=== PATIENT | male | born 1960 | race Caucasian/White ===

== ENCOUNTER 2019-05-04 12:16 | Outpatient (CLI) | payer MEDICARE, MEDICAID, SELFPAY ==
[2019-05-04 14:28] LABS: Alanine Aminotransferase 29 U/L (4-50); Albumin Level 4.4 g/dL (3.5-5.1); Alkaline Phosphatase 96 U/L (38-126); Aspartate Amino Transferase 27 U/L (17-59); Bilirubin,Total 0.5 mg/dL (0.2-1.3); Blood Urea Nitrogen 11 mg/dL (9-20); Calcium 9.7 mg/dL (8.4-10.2); Carbon Dioxide 25 mmol/L (22-30); Chloride 92 mmol/L (98-107); Estimated Glomerular Filt Rate > 60; Glucose 214 mg/dL (75-110); Potassium 4.4 mmol/L (3.4-5.0); Sodium 132 mmol/L (137-145)
== END 2019-05-04 12:17 | disposition home or self-care (01) ==
LOC: ANHWCLAB 12:30
PROVIDERS: PCP Family Medicine
DX: E11.65 Type 2 diabetes mellitus with hyperglycemia (principal)
CPT/HCPCS: 36415; 80053; 82043

== ENCOUNTER 2019-06-07 10:47 | Outpatient (CLI) | payer MEDICARE, MEDICAID, SELFPAY ==
[2019-06-07 13:40] LABS: Cholesterol 159 mg/dL (0-200); HDL Direct 45 mg/dL; Triglycerides 180 mg/dL (<150)
[2019-06-07 13:51] LABS: LDL Cholesterol Direct 89 mg/dL
[2019-06-07 14:09] LABS: Creatinine Urine 28.5 mg/dL
[2019-06-07 14:14] LABS: MALB Creatinine Ratio 154.7 mg/g (0-30); Microalbumin Urine Random 44.1 mg/L (0-16.7)
== END 2019-06-07 10:48 | disposition home or self-care (01) ==
LOC: ANHWCLAB 10:55
PROVIDERS: PCP Family Medicine
DX: E11.65 Type 2 diabetes mellitus with hyperglycemia (principal)
CPT/HCPCS: 36415; 80061; 82043

== ENCOUNTER 2019-11-16 10:58 | Outpatient (CLI) | payer MEDICARE, MEDICAID, SELFPAY ==
[2019-11-16 12:12] LABS: Basophils Absolute Auto 0.1 K/mm3 (0.0-0.1); Basophils Percent Auto 0.7 % (0.2-1.2); Eosinophils Absolute Auto 0.2 K/mm3 (0-0.3); Eosinophils Percent Auto 1.4 % (0-4.4); Hematocrit 53.6 % (42.0-52.0); Hemoglobin 18.5 g/dL (14.0-18.0); Immature Granulocyte Absolute 0.05 K/mm3 (0.00-0.031); Immature Granulocyte Percent A 0.5 % (0-0.5); Lymphocytes Absolute Auto 3.26 K/mm3 (0.9-3.2); Lymphocytes Percent Auto 30.5 % (18.3-44.2); Mean Corpuscular HGB Conc 34.5 g/dl (32-36); Mean Corpuscular Volume 89.9 fl (80-100); Mean Platelet Volume 9.7 fl (7.4-10.4); Monocytes Percent Auto 9.5 % (2.6-8.5); Neutrophils Absolute Auto 6.1 K/mm3 (1.3-6.7); Neutrophils Percent Auto 57.4 % (45.5-73.1); Platelet Count Result 269 k/mm3 (150-375); Red Blood Count 5.96 M/mm3 (4.6-6.20); Red Cell Distribution Width 12.3 % (11.5-14.5); White Blood Count 10.7 K/mm3 (4.5-10.0)
[2019-11-16 12:29] LABS: Alanine Aminotransferase 33 U/L (4-50); Albumin Level 4.6 g/dL (3.5-5.1); Alkaline Phosphatase 67 U/L (38-126); Anion Gap 10 mmol/L (8-16); Aspartate Amino Transferase 29 U/L (17-59); Bilirubin,Total 0.6 mg/dL (0.2-1.3); Blood Urea Nitrogen 11 mg/dL (9-20); Calcium 9.6 mg/dL (8.4-10.2); Carbon Dioxide 27 mmol/L (22-30); Chloride 98 mmol/L (98-107); Cholesterol 147 mg/dL (0-200); Estimated Glomerular Filt Rate > 60; Glucose 115 mg/dL (75-110); HDL Direct 44 mg/dL; Potassium 4.7 mmol/L (3.4-5.0); Sodium 135 mmol/L (137-145); Triglycerides 176 mg/dL (<150)
[2019-11-16 12:40] LABS: LDL Cholesterol Direct 76 mg/dL
[2019-11-16 13:00] LABS: Prostate Specific Antigen 0.1 ng/mL (< OR = 4.0); Thyroid Stimulating Hormone 0.927 uIU/mL (0.465-4.680)
[2019-11-16 13:26] LABS: Free T4 Free Thyroxine 0.97 ng/mL (0.78-2.19); Vitamin D 25 Hydroxy 46.8 ng/mL
[2019-11-16 13:38] LABS: Creatinine Urine 111.8 mg/dL
[2019-11-16 13:43] LABS: Microalbumin Urine Random 83.9 mg/L (0-16.7)
[2019-11-18 13:42] LABS: Triiodothyronine T3 Free 3.1 pg/mL (2.3-4.2)
== END 2019-11-16 10:59 | disposition home or self-care (01) ==
LOC: ANHLAB 11:03
PROVIDERS: PCP Family Medicine; Visit Provider Nurse Practitioner
DX: E11.42 Type 2 diabetes mellitus with diabetic polyneuropathy (principal); E66.09 Other obesity due to excess calories; I10 Essential (primary) hypertension; E78.2 Mixed hyperlipidemia; E55.9 Vitamin D deficiency, unspecified; Z12.5 Encounter for screening for malignant neoplasm of prostate
CPT/HCPCS: 36415; 80053; 80061; 82043; 82306; 84153; 84439; 84443; 84481; 85025; G0103

== ENCOUNTER 2020-04-16 00:24 | Outpatient (CLI) | payer MEDICARE, MEDICAID, SELFPAY ==
[2020-04-16 18:26] LABS: SARS-CoV-2 RNA PCR Negative
== END 2020-04-16 00:25 | disposition home or self-care (01) ==
LOC: ANHCOVIDDT 00:24
PROVIDERS: Family Provider Family Medicine; PCP Family Medicine; Visit Provider Internal Medicine Gastroenterology
DX: Z01.812 Encounter for preprocedural laboratory examination (principal); Z20.822 Contact with and (suspected) exposure to COVID-19
CPT/HCPCS: C9803; U0003; U0005

== ENCOUNTER 2020-04-19 00:43 | Day surgery (SDC) | payer MEDICARE, MEDICAID, SELFPAY ==
[2020-04-09 15:55] VITALS: BMI 32.8
--- NOTE | 2020-04-19 12:15 | P.PNAN_ITS ---
Anes - Initial Pre Proc Eval Procedure: Operation Date: 04/19/20 12:00 Proposed Procedures p Colonoscopy - Rene Zavaleta DO Date/Time: 04/19/20 12:15 Surgeon: Rene Zavaleta DO Pre Op Diagnosis: Diarrhea Patient Data Age: 59 Gender: M Height: 6 ft Weight: 110 kg Allergies Allergy/AdvReac Type Severity Reaction Status Date / Time No Known Allergies Allergy Unknown Verified 04/09/20 16:01 Home Medications Medication Instructions Recorded Confirmed Type amitriptyline 50 mg PO DAILY 04/09/20 04/09/20 History hydrochlorothiazide 25 mg PO DAILY 04/09/20 04/09/20 History insulin glargine [Lantus Solostar 15 unit SUBCUT HS 04/09/20 04/09/20 History U-100 Insulin] lisinopril 40 mg PO DAILY 04/09/20 04/09/20 History metformin 1,000 mg PO BID 04/09/20 04/09/20 History metoprolol succinate 100 mg PO DAILY 04/09/20 04/09/20 History primidone 50 mg PO DAILY 04/09/20 04/09/20 History simvastatin 20 mg PO DAILY 04/09/20 04/09/20 History Patient hx anesthesia problems: none Family hx anesthesia problems: none [facility] Past Medical History Medical History (Updated 04/19/20 @ 12:15 by Brian Medellin MD) Diabetes Hyperlipidemia Hypertension Social History Social History Smoking packs per day: 1 Smoking cigarettes per day: 20.0 Years smoked: 40 Smoking pack-years: 40.00 Smoking status: Current every day smoker Tobacco type: cigarettes Alcohol intake: current Substance use type: does not use Living arrangements: alone Spiritual care concerns: No Anes - Eval Final PreProcedure Day of Procedure 04/19/20 12:15 Patient weight: obese Heart: regular rate and rhythm Lungs: clear to auscultation Airway: Mallampati scale class II Neurological: alert and oriented Last oral intake: >/= 8 hours ASA classification: III Emergent: no Anesthetic plan: proceed Anesthesia type and monitoring: general GIVS and standard monitoring Informed Consent: The patient's anesthetic plan and its attendant risks and benefits were discussed with the patient/family/POA. Questions were solicited and answers provided to the satisfaction of the patient/family/POA.
[2020-04-19 12:23] VITALS: BP 140/81; PULSE 73; RESP 18; TEMP 36.4; O2SAT 97; BMI 34.6
[2020-04-19] MEDS: LACTATED RINGERS 1,000 ML 150 ML IV CONT (12:34)
[2020-04-19 12:36] LABS: Glucose Point of Care 182 (65-105)
--- NOTE | 2020-04-19 13:04 | WPDGICN ---
GI Consult Note Consult date/time: 04/19/20 13:04 HPI: Reason for visit is colonoscopy. This very pleasant gentleman's seen at the request the primary physician. The patient was examined. Impression: This very pleasant gentleman is here for screening colonoscopy. He did have an episode of diarrhea. This was felt to be due to metformin. The diarrhea ceased after discontinuation of metformin. Obesity. Tobacco abuse. Diabetes mellitus. Now the. HTN. HLD. Recommendation: Colonoscopy. History: Very pleasant gentleman is here for colonoscopy. Was having diarrhea. Since decreasing his metformin doses diarrhea abated. Hematochezia, melena acholic stools night. Abdominal pain, nausea, vomiting and hematemesis tonight. Fever, chills and night sweats and tonight. The patient is here for colonoscopy. Physical examination: General: very pleasant patient in no acute distress. HEENT: Head was normocephalic sclerae is clear mouth without masses neck was supple. Heart: Rate rhythm regular without S3 or S4. Lungs: CTA. Abdomen: Soft with no guarding or rigidity. Bowel sounds were active. Neurologic: Cranial nerves 2 through 12 intact. No focal defects. No clonus. Musculoskeletal system: Revealed no joint tenderness or swelling no muscle atrophy. Extremities: Reveal no significant edema. Skin: Warm and dry with normal turgor. Mental status: intact. Patient is alert and oriented. Review of Systems Review of Systems: All systems reviewed & are unremarkable except as noted in HPI and below PMFSH Past Medical History Medical History (Updated 04/19/20 @ 12:15 by Brian Medellin MD) Diabetes Hyperlipidemia Hypertension Social History Social History Smoking packs per day: 1 Smoking cigarettes per day: 20.0 Years smoked: 40 Smoking pack-years: 40.00 Smoking status: Current every day smoker Tobacco type: cigarettes Alcohol intake: current Substance use type: does not use Living arrangements: alone Spiritual care concerns: No Meds Home Medications and Allergies Home Medications Medication Instructions Recorded Confirmed Type amitriptyline 50 mg PO DAILY 04/09/20 04/09/20 History hydrochlorothiazide 25 mg PO DAILY 04/09/20 04/09/20 History insulin glargine [Lantus Solostar 15 unit SUBCUT HS 04/09/20 04/09/20 History U-100 Insulin] lisinopril 40 mg PO DAILY 04/09/20 04/09/20 History metformin 1,000 mg PO BID 04/09/20 04/09/20 History metoprolol succinate 100 mg PO DAILY 04/09/20 04/09/20 History primidone 50 mg PO DAILY 04/09/20 04/09/20 History simvastatin 20 mg PO DAILY 04/09/20 04/09/20 History Allergies Allergy/AdvReac Type Severity Reaction Status Date / Time No Known Allergies Allergy Unknown Verified 04/19/20 12:18 Vital Signs Vital Signs - 24 hr 04/19/20 12:23 Temperature 36.4 C Pulse Rate 73 Respiratory Rate 18 Blood Pressure 140/81 Pulse Oximetry 97
[2020-04-19 14:11] VITALS: BP 103/64; PULSE 73; RESP 17; O2SAT 94
[2020-04-19 14:21] VITALS: BP 125/75; PULSE 68; RESP 19; O2SAT 100
[2020-04-19 14:26] LABS: Glucose Point of Care 147 (65-105)
[2020-04-19 14:31] VITALS: BP 125/72; PULSE 70; RESP 18; O2SAT 100
== END 2020-04-19 14:44 | disposition home or self-care (01) ==
PROVIDERS: Family Provider Family Medicine; PCP Family Medicine; Visit Provider Internal Medicine Gastroenterology
PROC: 0DJD8ZZ Inspection of Lower Intestinal Tract, Via Natural or Artificial Opening Endoscopic (ICD-10-PCS; CPT 45378; principal; 2020-04-19 12:00)
DX: Z12.11 Encounter for screening for malignant neoplasm of colon (principal); K63.5 Polyp of colon; R19.7 Diarrhea, unspecified; I10 Essential (primary) hypertension; E78.5 Hyperlipidemia, unspecified; E11.9 Type 2 diabetes mellitus without complications; E66.9 Obesity, unspecified; Z68.34 Body mass index [BMI] 34.0-34.9, adult; F17.210 Nicotine dependence, cigarettes, uncomplicated; Z79.4 Long term (current) use of insulin; Z79.84 Long term (current) use of oral hypoglycemic drugs
CPT/HCPCS: 45380; 88305; J2704; J7120

== ENCOUNTER 2020-10-09 10:27 | Outpatient (CLI) | payer MEDICARE, MEDICAID, SELFPAY ==
[2020-10-09 11:08] LABS: Alanine Aminotransferase 21 U/L (4-50); Albumin Level 4.7 g/dL (3.5-5.1); Alkaline Phosphatase 73 U/L (38-126); Anion Gap 11 mmol/L (8-16); Aspartate Amino Transferase 23 U/L (17-59); Bilirubin,Total 0.7 mg/dL (0.2-1.3); Blood Urea Nitrogen 12 mg/dL (9-20); Calcium 10.3 mg/dL (8.4-10.2); Carbon Dioxide 29 mmol/L (22-30); Chloride 96 mmol/L (98-107); Estimated Glomerular Filt Rate > 60; Glucose 147 mg/dL (65-110); Potassium 4.4 mmol/L (3.4-5.0); Sodium 136 mmol/L (137-145)
[2020-10-09 11:10] LABS: Hemoglobin A1C 7.2 % (<5.7)
== END 2020-10-09 10:28 | disposition home or self-care (01) ==
LOC: ANHLAB 10:37
PROVIDERS: PCP Family Medicine
DX: E11.65 Type 2 diabetes mellitus with hyperglycemia (principal)
CPT/HCPCS: 36415; 80053; 83036

== ENCOUNTER 2021-01-17 11:37 | Outpatient (CLI) | payer OTHER, SELFPAY ==
[2021-01-17 13:55] LABS: Hemoglobin A1C 8.5 % (<5.7)
[2021-01-17 14:00] LABS: Alanine Aminotransferase 25 U/L (4-50); Albumin Level 4.7 g/dL (3.5-5.1); Alkaline Phosphatase 87 U/L (38-126); Anion Gap 12 mmol/L (8-16); Aspartate Amino Transferase 24 U/L (17-59); Bilirubin,Total 0.5 mg/dL (0.2-1.3); Blood Urea Nitrogen 27 mg/dL (9-20); Calcium 10.3 mg/dL (8.4-10.2); Carbon Dioxide 24 mmol/L (22-30); Chloride 94 mmol/L (98-107); Estimated Glomerular Filt Rate > 60; Glucose 172 mg/dL (65-110); Potassium 4.4 mmol/L (3.4-5.0); Sodium 130 mmol/L (137-145)
[2021-01-17 14:14] LABS: Creatinine Urine 51.5 mg/dL
[2021-01-17 14:19] LABS: MALB Creatinine Ratio 13.4 mg/g (0-30); Microalbumin Urine Random 6.9 mg/L (0-16.7)
== END 2021-01-17 11:38 | disposition home or self-care (01) ==
PROVIDERS: PCP Family Medicine
DX: E11.65 Type 2 diabetes mellitus with hyperglycemia (principal)
CPT/HCPCS: 36415; 80053; 82043; 83036

== ENCOUNTER 2021-07-25 11:40 | Emergency (ER) | payer OTHER, SELFPAY ==
[2021-07-25 11:56] VITALS: BP 128/80; PULSE 65; RESP 18; TEMP 36.4; O2SAT 98
--- NOTE | 2021-07-25 12:19 | ED.EXTPRO ---
HPI - Extremity Problem General Chief complaint: Extremity Problem,Nontraumatic Stated complaint: toe infection Time Seen by Provider: 07/25/21 12:00 History of Present Illness HPI Narrative: Patient is a 60-year-old male who presents ER with pain at the plantar aspect of the fifth MTP on the right side. Patient reports he has been having a weird feeling for the last 2 months. Over the last 2 to 3 days its become more sore. No redness. He is unable to see the bottom of his foot so he is unsure if he has any wounds or blisters or warts. No fevers or chills or sweats. No unilateral leg swelling. He is without chest pain or shortness of breath. Denies any trauma to the area. Reports his primary care physician could not get him in for 2 more days so he came to the ER for further evaluation Related Data Home Medications Medication Instructions Recorded Confirmed amitriptyline 50 mg PO DAILY 04/09/20 04/09/20 hydrochlorothiazide 25 mg PO DAILY 04/09/20 04/09/20 insulin glargine [Lantus Solostar 15 unit SUBCUT HS 04/09/20 04/09/20 U-100 Insulin] lisinopril 40 mg PO DAILY 04/09/20 04/09/20 metformin 1,000 mg PO BID 04/09/20 04/09/20 metoprolol succinate 100 mg PO DAILY 04/09/20 04/09/20 primidone 50 mg PO DAILY 04/09/20 04/09/20 simvastatin 20 mg PO DAILY 04/09/20 04/09/20 Allergies Allergy/AdvReac Type Severity Reaction Status Date / Time No Known Allergies Allergy Unknown Verified 04/19/20 12:18 Review of Systems Review of Systems: All systems reviewed & are unremarkable except as noted in HPI and below Constitutional: Constitutional: Denies chills, Denies fever(s) and Denies weakness Cardiovascular: Cardiovascular: Denies chest pain and Denies radiating jaw, neck or arm pain Musculoskeletal: Musculoskeletal: Reports arthralgias, Denies joint swelling and Denies muscle cramps Integumentary/Breasts: Skin/Breast: Denies pruritus, Denies erythema and Denies skin ulcer Neurologic: Denies focal weakness and Denies numbness [facility] Past Medical History Medical History (Updated 07/25/21 @ 12:27 by Elías Hernandez MD) Diabetes Hyperlipidemia Hypertension Social History Social History Smoking packs per day: 1 Smoking cigarettes per day: 20.0 Years smoked: 40 Smoking pack-years: 40.00 Smoking status: Current every day smoker Tobacco type: cigarettes Alcohol intake: current Substance use type: does not use Spiritual care concerns: No Exam Narrative: GENERAL: Well-appearing, well-nourished, and in no acute distress. HEAD: Normocephalic, atraumatic. HEART: Regular rate and rhythm. Normal peripheral pulses. EXTREMITIES: Normal range of motion. No edema. Mild tenderness plantar aspect of the fifth MTP on the right side. No swelling or redness. Normal dorsalis pedis pulses. No ulcerations to the plantar aspect of the foot, no evidence of wart or other injury. There is some mild firmness with palpation that could represent fibroma. SKIN: Warm, dry, no rash. NEURO: Alert and oriented x3. PSYCH: Normal mood and affect. Course Course Emergency Course: Patient declines x-ray of the right foot to rule out fracture. Patient may be having some discomfort from arthritis to the joint again this is unable to be diagnosed without x-ray. No appearance of gout. No diabetic foot wound. Discharged with hard soled shoe as most of his pain is increased by rolling his foot to the lateral aspect and also with roll stepping. Vital Signs Vital signs: Vital Signs Temperature 97.6 F 07/25/21 11:56 Pulse Rate 65 07/25/21 11:56 Respiratory Rate 18 07/25/21 11:56 Blood Pressure 128/80 07/25/21 11:56 Pulse Oximetry 98 07/25/21 11:56 Temperature 97.6 F 07/25/21 11:56 Pulse Rate 65 07/25/21 11:56 Respiratory Rate 18 07/25/21 11:56 Blood Pressure 128/80 07/25/21 11:56 Pulse Oximetry 98 07/25/21 11:56 Discharge Plan Discharge Clinical Impression: Metatarsalgia of ri
== END 2021-07-25 12:47 | disposition home or self-care (01) ==
PROVIDERS: Emergency Provider Emergency Medicine; PCP Family Medicine
DX: M77.41 Metatarsalgia, right foot (principal); E11.9 Type 2 diabetes mellitus without complications; E78.5 Hyperlipidemia, unspecified; I10 Essential (primary) hypertension; Z79.84 Long term (current) use of oral hypoglycemic drugs; Z79.4 Long term (current) use of insulin; F17.210 Nicotine dependence, cigarettes, uncomplicated
CPT/HCPCS: 99283

== ENCOUNTER 2021-07-29 12:27 | Outpatient (CLI) | payer OTHER, SELFPAY ==
--- NOTE | ~2021-07-29 | XR_ITS ---
XR foot RT min 3V DATE: 07/29/2021 12:49 INDICATION: Pain at the base of the fifth toe for 2 weeks. No known injury. TECHNIQUE: 4 views COMPARISON: None FINDINGS: There is mild osteoarthritis the first metatarsophalangeal joint. There is hallux valgus. No fracture, dislocation, periosteal reaction or bone destruction is evident. Minimal plantar calcaneal enthesopathy. IMPRESSION: No fracture or dislocation Reviewed, dictated and finalized at location B. IMPRESSION: No fracture or dislocation
== END 2021-07-29 12:28 | disposition home or self-care (01) ==
PROVIDERS: PCP Family Medicine; Visit Provider Family Medicine
DX: M79.671 Pain in right foot (principal)
CPT/HCPCS: 73630

== ENCOUNTER 2022-01-14 09:28 | Outpatient (CLI) | payer OTHER, SELFPAY ==
[2022-01-14 10:20] LABS: Alanine Aminotransferase 23 U/L (6-50); Albumin Level 4.3 g/dL (3.5-5.1); Alkaline Phosphatase 74 U/L (38-126); Anion Gap 11 mmol/L (8-16); Aspartate Amino Transferase 20 U/L (17-59); Bilirubin,Total 0.8 mg/dL (0.2-1.3); Blood Urea Nitrogen 26 mg/dL (9-20); Calcium 8.8 mg/dL (8.4-10.2); Carbon Dioxide 25 mmol/L (22-30); Chloride 98 mmol/L (98-107); Estimated Glomerular Filt Rate > 60; Glucose 177 mg/dL (65-110); Sodium 134 mmol/L (137-145)
[2022-01-14 10:25] LABS: Hemoglobin A1C 8.5 % (<5.7)
[2022-01-14 10:50] LABS: Creatinine Urine 65.6 mg/dL
[2022-01-14 10:55] LABS: MALB Creatinine Ratio 52.3 mg/g (0-30); Microalbumin Urine Random 34.3 mg/L (0-16.7)
== END 2022-01-14 09:29 | disposition home or self-care (01) ==
PROVIDERS: PCP Family Medicine
DX: E11.65 Type 2 diabetes mellitus with hyperglycemia (principal)
CPT/HCPCS: 36415; 80053; 82043; 83036

== ENCOUNTER 2022-02-05 11:02 | Emergency (ER) | payer OTHER, SELFPAY ==
--- NOTE | ~2022-02-05 | XR_ITS ---
EXAMINATION: XR lumbar spine 2-3V DATE: 02/05/2022 12:05 INDICATION: Low back pain post fall 2 weeks prior TECHNIQUE: Anteroposterior and lateral views of the lumbar spine, and cone-down lateral view of the l umbosacral junction were obtained. COMPARISON: None. FINDINGS: 13 degree levoscoliosis between L3 and L5 with mild compensatory upper thoracic dextrocurvature. Sagi ttal alignment is normal. Mild likely physiologic anterior wedging at T12 with Schmorl's node along t he inferior endplate. Moderate right-sided predominant disc height loss at L3-L4 and L4-L5. Mild to m oderate disc height loss at L5-S1. Mild disc height loss at T10-T11, T11-T12, and L2-L3. Mild left an d mild to moderate right hip osteoarthritis. There is also mild to moderate bilateral sacroiliac oste oarthritis. Moderate facet osteoarthritis in the mid to lower lumbar spine. IMPRESSION: 1. Mild levoscoliosis with moderate spondylosis in the mid to lower lumbar spine and mild spondylosis in the more cephalad lumbar and visualized lower thoracic spine. Reviewed, dictated and finalized at location B. X [employer] IMPRESSION: 1. Mild levoscoliosis with moderate spondylosis in the mid to lower lumbar spin e and mild spondylosis in the more cephalad lumbar and visualized lower thoraci c spine.
[2022-02-05 11:07] VITALS: BP 145/80; PULSE 99; RESP 14; TEMP 37.4; O2SAT 98
--- NOTE | 2022-02-05 13:30 | ED.BACK ---
HPI - Back Pain/Injury General Chief Complaint: Back Pain/Injury Stated Complaint: fall, back pain Time Seen by Provider: 02/05/22 13:12 History of Present Illness HPI Narrative: Pt briefly lost balance and caught himself about three weeks ago and noticed pain in his low back. Pt says he has noticed intermittent pain in his low back since which has worsened and today it is much worse and feels like it is locking up. Pt deneis problems with bladder or bowels and has good strength and sensation in legs. Pt denies fever. Related Data Home Medications Medication Instructions Recorded Confirmed amitriptyline 50 mg tablet 50 mg PO DAILY 04/09/20 04/09/20 hydrochlorothiazide 25 mg tablet 25 mg PO DAILY 04/09/20 04/09/20 insulin glargine 100 unit/mL (3 15 unit subcut HS 04/09/20 04/09/20 mL) subcutaneous pen (Lantus Solostar U-100 Insulin) lisinopril 40 mg tablet 40 mg PO DAILY 04/09/20 04/09/20 metformin 500 mg tablet,extended 1,000 mg PO BID 04/09/20 04/09/20 release 24 hr metoprolol succinate 50 mg 100 mg PO DAILY 04/09/20 04/09/20 tablet,extended release 24 hr primidone 50 mg tablet 50 mg PO DAILY 04/09/20 04/09/20 simvastatin 20 mg tablet 20 mg PO DAILY 04/09/20 04/09/20 Allergies Allergy/AdvReac Type Severity Reaction Status Date / Time No Known Allergies Allergy Unknown Verified 02/05/22 11:22 Review of Systems Review of Systems: All systems reviewed & are unremarkable except as noted in HPI and below PMFSH Past Medical History Medical History (Updated 02/05/22 @ 13:38 by Gary Byrd III, DO) Diabetes Hyperlipidemia Hypertension Social History Social History Smoking packs per day: 1 Smoking cigarettes per day: 20.0 Years smoked: 40 Smoking pack-years: 40.00 Smoking status: Current every day smoker Tobacco type: cigarettes Alcohol intake: current Substance use type: does not use Spiritual care concerns: No Exam Const: General: healthy appearing Nutritional Appearance: well nourished Orientation/consciousness: patient oriented x3 Limitations: no limitations Neck: Neck: normal visual inspection and no lymphadenopathy Resp: Effort & Inspection: normal respiratory effort Auscultation: clear to auscultation bilaterally Cardio: Rate: regular rate Rhythm: regular rhythm GI: Auscultation: normal bowel sounds Back/Spine/Pelvis: Other: tender paraspinous muscles low back with spasm especially on left side Skin: General skin exam: normal color Rashes: no rashes Neuro: General: patient oriented x3, moves all extremities and no focal motor deficits Speech: normal speech Other: 5/5 strength in LE b/l Extrem: General: normal to inspection Psych: Mental Status: mental status grossly normal Affect: normal affect Attitude: cooperative Course Vital Signs Vital signs: Vital Signs Temperature 99.3 F 02/05/22 11:07 Pulse Rate 99 02/05/22 11:07 Respiratory Rate 14 02/05/22 11:07 Blood Pressure 145/80 H 02/05/22 11:07 Pulse Oximetry 98 02/05/22 11:07 Oxygen Delivery Room Air 02/05/22 11:07 Temperature 99.3 F 02/05/22 11:07 Pulse Rate 99 02/05/22 11:07 Respiratory Rate 14 02/05/22 11:07 Blood Pressure 145/80 H 02/05/22 11:07 Pulse Oximetry 98 02/05/22 11:07 Oxygen Delivery Room Air 02/05/22 11:07 Discharge Plan Discharge Clinical Impression: Strain of lumbar region Patient Disposition: Home, Self-Care Condition: Stable Instructions: Antibiotic Form, Acute Low Back Pain (ED) Prescriptions: New naproxen [Naprosyn] 500 mg tablet 500 mg PO BID Qty: 20 0RF cyclobenzaprine 10 mg tablet 10 mg PO TID Qty: 14 0RF hydrocodone-acetaminophen 5-325 mg tablet 1 tablet PO Q6H PRN (Reason: pain) Qty: 14 0RF No Action primidone 50 mg tablet 50 mg PO DAILY metoprolol succinate 50 mg tablet extended release 24 hr 100 mg PO DAILY amitriptyline 50 mg tablet 50 mg PO VINCENT
== END 2022-02-05 13:56 | disposition home or self-care (01) ==
PROVIDERS: Emergency Provider Emergency Medicine; PCP Family Medicine
DX: S39.012A Strain of muscle, fascia and tendon of lower back, initial encounter (principal); F17.210 Nicotine dependence, cigarettes, uncomplicated; W18.40XA Slipping, tripping and stumbling without falling, unspecified, initial encounter
CPT/HCPCS: 72100; 99283

== ENCOUNTER 2024-09-19 10:50 | Outpatient (CLI) | payer MEDICARE, SELFPAY ==
--- NOTE | ~2024-09-19 | XR_ITS ---
Left Knee Technique: AP, lateral, and sunrise views were obtained. Clinical History: Pain Findings: No fracture or dislocation is seen. There is medial compartment narrowing. There is moderat e tricompartmental osteophyte formation. Minimal joint effusion is seen. 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 Reviewed, dictated and finalized at [facility]. 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
--- OUTSIDE RECORDS SUMMARY | 2024-09-19 11:32 | XMS_ITS | Clinical Summary ---
Author Organization [facility] [employer] Address [address] [place] [address] Care Team Providers Care Heat Treatment Technician Name Role Phone Sai Colbert MD Primary Care Provider [phone] Source Comments [facility] [employer]non-owned Affiliates and Associated Physician Practices is amultiple site organization consisting of ambulatory clinics and hospital sitesin [place], [place], [place] and [place]. This disclosure is being madepursuant to the Care Everywhere program and may not contain all information available regarding this patient. Last updated 17.[facility] [employer] Allergies No known active allergies Medications * Be aware that medications may not be up to date on this document. Alwaysverify current medications with the patient. amitriptyline (ELAVIL) 50 MG tablet Take 50 mg by mouth Active hydrochlorothia zide (HYDRODIURIL) 25 MG tablet Take 25 mg by mouth Active lisinopril (PRINIVIL; ZESTRIL) 40 MG tablet Take 40 mg by mouth Active metFORMIN CR 24hr modified (GLUMETZA) 500 MG (MOD) tablet Acti ve aspirin (ASPIRIN) 325 MG tablet Take 325 mg by mouth 2 times daily Active HYDROcodone-veronica taminophen (NORCO) 5-325 MG tablet Take 1 Tab by mouth every 4 hours as needed for Pain 75 Tab 0 09/10/2015 Active metFORMIN CR 24hr modified (GLUMETZA) 500 MG (MOD) tablet Acti ve Cholecalciferol (VITAMIN D3) 1000 UNITS Take 1 capsule by mouth once daily Active metFORMIN ER 24hr (GLUCOPHAGE XR) 500 MG tablet Take 2 tablets by mouth 2 times daily 2 06/16/2017 Active ibuprofen (MOTRIN) 800 MG tablet Take 1 tablet by mouth 3 times daily With food 2 06/16/2017 Active naproxen (NAPROSYN) 500 MG tablet Take 1 tablet by mouth 2 times daily With food 0 04/22/2017 Active pioglitazone (ACTOS) 15 MG tablet Take 15 mg by mouth once daily Active primidone (MYSOLINE) 50 MG tablet Take 50 mg by mouth at bedtime Active simvastatin (ZOCOR) 20 MG tablet Take 20 mg by mouth at bedtime Active HYDROcodone-veronica taminophen (NORCO) 5-325 MG tablet Take 1-2 tablets by mouth every 4 hours as needed for Pain 11/06/2016 Active Active Problems Problem Noted Date Diagnosed Date Chronic right shoulder pain 03/31/2017 Complete tear of right rotator cuff 09/30/2016 S/P rotator cuff repair 10/23/2015 Tear of right rotator cuff 09/09/2015 Rotator cuff tear, left 07/24/2015 Acromioclavicular joint arthritis 07/03/2015 Acute postoperative pain of right shoulder 07/02 Social History Tobacco Use Types Packs/Day Years Used Date Smoking Tobacco: Every Day Cigarettes 1 30 Smokeless Tobacco: Never Tobacco Cessation:Counseling Given: Yes Alcohol Use Standard Drinks/Week Comments No 0 (1 standard drink = 0.6 oz pur e alcohol) Sex and Gender Information Value Date Recorded Sex Assigned at Not on file Legal Sex Male 7:47 AM CDT Gender Identity Not on file Sexual Orientation Not on file Last Filed Vital Signs Vital Sign Reading Time Taken Comments Blood Pressure 105/59 11/06/2016 1:25 PM CDT Pulse 60 11/06/2016 12:40 PM CDT Temperature 35.9 C (96.7 F) 11/06/2016 12:40 PM CDT Respiratory Rate 12 11/06/2016 1:25 PM CDT Oxygen Saturation 97% 11/06/2016 1:25 PM CDT Inhaled Oxygen Concentration - - Weight 110.7 kg (244 lb) 07/07/2017 12:00 PM CDT Height 185.4 cm (6' 1) 07/07/2017 12:00 PM CDT Body Mass Index 32.19 07/07/2017 12:00 PM CDT Plan of Treatment Health Maintenance Due Date Last Done Comments COLOGUARD (AGES 45-75) - COL ON CA SCREENING 1959 COLON MONITORING 1959 COLONOSCOPY - COLON CA SCREENING 1959 CT COLONOGRAPHY - COLON CA SCREENING 1959 Colorectal Cancer Screening 1959 FIT - COLON CA SCREENING 1959 FLEX SIG - COLON CA SCREENING 1959 HIV SCREENING 12/14/1974 HEPATITIS C SCREENING 12/10/1977 DTAP/TDAP/TD VACCINES (1 - Tdap) 12/14/1978 LUNG CANCER SCREENING 12/14/2009 PNEUMOCOCCAL VACCINE 50+ (1 of 1 - PCV) 12/14/2009 ZOSTER VACCINE (1 of 2) 12/14/2009 SCREENING FOR DIABETES 09/09/2018 6, 09/10/2015 COVID-19 VACCINE (1 - 2023-2 5 season) 2023 DEPRESSION SCREENING 03/23/2024 INFLUENZA VACCINE (Season Ended) 2024 Respiratory Syncytial Virus (RSV) Vaccine Pt: or over 60 yrs (1 - 1-dose 75+ series) 12/14/2034 HEPATITIS B VACCINE Aged Out No longe r eligible based on patient's age to complete this topic HIB VACCINE Aged Out No longer eligi ble based on patient's age to complete this topic HPV VACCINE Aged Out No longer eligi ble based on patient's age to complete this topic MENINGOCOCCAL (Group B) VACCINE SHARED DECISION-MAKING Aged Out No longer eligible based on patient's age to complete this topic MENINGOCOCCAL GROUPS A/C/Y/W VACCINE Aged Out No longer eligible b ased on patient's age to complete this topic Medical Devices Implanted Type Area Director Hematology Device Identifier Shelf Expiration Date Model / Serial / Lot 5.5mm [employer] Implanted:Qty: 2 on 09/10/2015 by Umer Lentz MD at [facility] Left: Shoulder [employer] 05/20/2018 [id number] / / [id number] Procedures Procedure Name Priority Date/Time Associated Diagnosis Comments GLUCOSE - POINT OF CARE Routine 09/10/2015 6:14 AM CDT from Last 3 Months or Most Recently Relevant to Health Maintenance Results * (ABNORMAL) GLUCOSE - POINT OF CARE (09/10/2015 6:14 AM CDT) Glucose WB/POC 152(H) 70 - 106 mg/dL 09/10/2015 6:16 AM CDT [facility] Blood BLOOD SPECIMEN / Unknown 09/10/2015 6:14 AM CDT 09/10/2015 6:16 AM CDT Umer Lentz MD LAB - POINT OF CARE ORDERABLES F inal Result Performing Organization Address City/State/[facility] Co de Phone Number [facility] [address] [place], [place] [id number] from Last 3 Months or Most Recently Relevant to Health Maintenance Insurance [facility] MEDICAID - OUT OF STATE Care Teams Heat Treatment Technician Relationship Specialty Start Date End Date Sai Colbert MD [address] [place] [address] PCP - General Family Medicine 06/29/15
--- OUTSIDE RECORDS SUMMARY | 2024-09-19 11:32 | XMS_ITS | Clinical Summary ---
Author Organization [facility] Address [address], [facility] [address] [place] [address] Phone Care Team Providers Care Personnel Analyst Name Role Phone Sai Colbert MD Primary Care Provider Allergies No known active allergies Medications amitriptyline (ELAVIL) 50 MG Tablet TK 1 T PO QD HS 01/22/2020 Active hydroCHLOROthia zide 25 MG Tablet TK 1 T PO QD 01/22/2020 Active ibuprofen (MOTRIN) 800 MG Tablet TK 1 T PO TID WF 02/23/2020 Active Lantus SoloStar 100 UNIT/ML Solution Pen-injector INJECT 12 UNITS HS 12/26/2019 Active BD Pen Needle Lizabeth 2nd Gen 32G X 4 MM Misc INJECT QD 01/22/2020 Act nadya lisinopril (PRINIVIL, ZESTRIL) 40 MG Tablet TK 1 T PO QD 12/26/2019 Active metFORMIN (GLUCOPHAGE-XR) 500 MG TABLET SR 24 HR TK 2 TS PO BID WITH FOOD 02/23/2020 Active metoprolol Succinate (TOPROL-XL) 100 MG TABLET SR 24 HR TK 1 T PO QD 02/23/2020 Active primidone (MYSOLINE) 50 MG Tablet TAKE 1 T BY MOUTH EVERY DAY AT BEDTIME 02/13/2020 Active simvastatin (ZOCOR) 20 MG Tablet TK 1 T PO QD IN THE ROSE 01/22/2020 Active aspirin 325 MG Tablet Take 325 mg by mouth. Active pioglitazone (ACTOS) 15 MG Tablet Take 15 mg by mouth. Active Cholecalciferol 25 mcg Capsule Take 1 Cap by mouth. Active Insulin Syringe-Needle U-100 31G X 5/16 0.5 ML Misc Inject 1 time daily 08/04/2017 Active Glucose Blood (BLOOD GLUCOSE TEST STRIPS) Strip Test once daily 07/09/2018 Active Blood Glucose Monitoring Suppl (Blood Glucose Monitor System) w/Device Kit Test once daily 07/09/2018 Active Active Problems No known active problems Immunizations Immunization Administration Dates Next Due TDAP Vaccine 09/17/2014 Social History Tobacco Use Types Packs/Day Years Used Date Smoking Tobacco: Every Day Cigarettes Smokeless Tobacco: Never Tobacco Cessation:Ready to Q uit: No; Counseling Given: No Alcohol Use Standard Drinks/Week Comments Not Currently 0 (1 standard drink = 0.6 oz pur e alcohol) Sexually Active Control Partners Comments Not Currently Sex and Gender Information Value Date Recorded Sex Assigned at Not on file Legal 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 Gender Identity Not on file Sexual Orientation Not on file Last Filed Vital Signs Vital Sign Reading Time Taken Comments Blood Pressure 126/84 03/02/2020 1:05 PM NUISANCE WILDLIFE TRAPPER Pulse 70 03/02/2020 1:05 PM NUISANCE WILDLIFE TRAPPER Temperature 37 C (98.6 F) 03/02/2020 1:05 PM NUISANCE WILDLIFE TRAPPER Respiratory Rate 16 03/02/2020 1:05 PM NUISANCE WILDLIFE TRAPPER Oxygen Saturation 96% 03/02/2020 1:05 PM NUISANCE WILDLIFE TRAPPER Inhaled Oxygen Concentration - - Weight 117.5 kg (259 lb) 03/02/2020 1:05 PM NUISANCE WILDLIFE TRAPPER Height 182.9 cm (6') 03/02/2020 1:05 PM NUISANCE WILDLIFE TRAPPER Body Mass Index 35.13 03/02/2020 1:05 PM NUISANCE WILDLIFE TRAPPER Plan of Treatment Health Maintenance Due Date Last Done Comments Hepatitis C Virus (HCV) Screening 1960 Cologuard 12/14/2009 Immunochemical Fecal Occult Blood 12/14/2009 Pneumococcal Immunization (5 0+ years) (1 of 1 - PCV) 12/14/2009 Zoster Immunization (1 of 2) 12/14/2009 Colonoscopy 07/18/2020 04/19/2020 Colorectal Cancer Screening 07/18/2020 SARS-COV-2 Immunization (3 - 2023- season) 2023 12/19/2020, 11/27/2020 Influenza Immunization (Seas on Ended) 2024 Respiratory Syncytial Virus (RSV) Immunization (Adult) (1 - 1-dose 75+ series) 12/14/2034 DTaP/Tdap/Td Immunization Discontinued 09/17/2014 Hepatitis B Immunization Aged Out No longer eligible based on patient's age to complete this topic Human Papillomavirus (HPV) Immunization Aged Out No longer eligible based on patient's age to complete this topic Meningococcal Immunization (ACWY) Aged Out No longer eligible based on patient's age to complete this topic Rotavirus Immunization Aged Out No lo nger eligible based on patient's age to complete this topic Procedures Procedure Name Priority Date/Time Associated Diagnosis Comments COLONOSCOPY Routine 04/19/2020 from Last 3 Months or Most Recently Relevant to Health Maintenance Results * COLONOSCOPY (04/19/2020) Rene Zavaleta DO PROCEDURE/MINOR SURGICAL ORDERA BLES Final Result from Last 3 Months or Most Recently Relevant to Health Maintenance Insurance MEDICARE [place]ICAID [place] Care Teams Personnel Analyst Relationship Specialty Start Date End Date Sai Colbert MD [address] [place], [place] [id number] PCP - General Family Medicine 02/28/20
== END 2024-09-19 10:51 | disposition home or self-care (01) ==
PROVIDERS: PCP Family Medicine; Visit Provider Registered Nurse
DX: M17.12 Unilateral primary osteoarthritis, left knee (principal); M25.561 Pain in right knee
CPT/HCPCS: 73564

== ENCOUNTER 2024-10-13 11:20 | Outpatient (CLI) | payer MEDICARE, SELFPAY ==
--- NOTE | ~2024-10-13 | XR_ITS ---
XR abdomen/kub 1V 10/13/2024 11:37 Indication: Diarrhea Procedure: KUB Comparison: No prior studies for comparison. Findings: Bowel gas pattern nonobstructive. No renal stones identified. There are pelvic phleboliths. Altered lumbar spondylosis with levocurvature of the spine. There is osteitis pubis. Impression: 1: No acute abdominal abnormality. Reviewed, dictated and finalized at location A. Impression: 1: No acute abdominal abnormality.
--- OUTSIDE RECORDS SUMMARY | 2024-10-13 11:26 | XMS_ITS | Clinical Summary ---
Author Organization [facility] Address [address], [address] [address] Phone Care Team Providers Care House Moving Supervisor Name Role Phone Sai Colbert MD Primary [...] on file Legal Sex Male 10:00 AM CREATIVE SERVICES COORDINATOR Gender Identity Not on file Sexual Orientation Not on file Last Filed Vital Signs Vital Sign Reading Time Taken Comments Blood Pressure 126/84 03/02/2020 1:05 PM CREATIVE SERVICES COORDINATOR Pulse 70 03/02/2020 1:05 PM CREATIVE SERVICES COORDINATOR Temperature 37 C (98.6 F) 03/02/2020 1:05 PM CREATIVE SERVICES COORDINATOR Respiratory Rate 16 03/02/2020 1:05 PM CREATIVE SERVICES COORDINATOR Oxygen Saturation 96% 03/02/2020 1:05 PM CREATIVE SERVICES COORDINATOR Inhaled Oxygen Concentration - - Weight 117.5 kg (259 lb) 03/02/2020 1:05 PM CREATIVE SERVICES COORDINATOR Height 182.9 cm (6') 03/02/2020 1:05 PM CREATIVE SERVICES COORDINATOR Body Mass Index 35.13 03/02/2020 1:05 PM CREATIVE SERVICES COORDINATOR Plan of Treatment Health Maintenance Due Date Last Done Comments Hepatitis C Virus (HCV) Screening 1960 Cologuard 12/14/2004 Immunochemical Fecal Occult Blood 12/14/2004 Pneumococcal Immunization (5 0+ years) (1 of 1 - PCV) 12/14/2009 Zoster Immunization (1 of 2) 12/14/2009 Colonoscopy 07/18/2020 04/19/2020 Colorectal Cancer Screening 07/18/2020 SARS-COV-2 Immunization (3 - 2023- season) 2023 12/19/2020, 11/27/2020 Influenza Immunization (#1) 2024 Respiratory Syncytial Virus (RSV) Immunization (Adult) [...] Maintenance Insurance MEDICARE MEDICAID [place] Care Teams House Moving Supervisor Relationship Specialty Start Date End Date Sai Colbert MD [address] [place] [id number] PCP - General Family Medicine 02/28/20
--- OUTSIDE RECORDS SUMMARY | 2024-10-13 11:26 | XMS_ITS | Clinical Summary ---
Author Organization [facility] Address [address] [place] [address] Care Team Providers Care Numerical Control Programmer Name Role Phone Sai Colbert MD Primary Care Provider [phone] Allergies No known active allergies Medications amitriptyline 50 MG tablet Take 1 tablet (50 mg total) by mouth daily. 5 Active hydrochlorothiazid e 25 MG tablet 5 Active ibuprofen 800 MG tablet Take 1 tablet (800 mg total) by mouth 2 (two) times daily as needed. Active primidone 50 MG tablet Take as directed Active simvastatin 20 MG tablet Take 1 tablet (20 mg total) by mouth daily. Active lisinopril 40 MG tablet Take 1 tablet (40 mg total) by mouth daily. 0 Active metoprolol succinate ER 100 MG 24 hr tablet Take 1 tablet (100 mg total) by mouth daily. 2 Active vitamin D2, ergocalciferol, (DRISDOL) 1.25 mg capsule TAKE 1 CAPSULE BY MOUTH ONCE A WEEK. TAKE SAME DAY EACH WEEK 4 Active sildenafil (VIAGRA) 100 MG tablet Take 1 tablet (100 mg total) by mouth daily. 3 Active Lancets MiscIndications:Un controlled type 2 diabetes mellitus with hyperglycemia ([facility] HHS/HCC) Test once daily 100 each 3 5 Active Glucose Blood (MinefulTOUCH ULTRA) test stripIndications:U ncontrolled type 2 diabetes mellitus with hyperglycemia ([facility] HHS/HCC) Test blood sugar daily Dx:E11.65 100 strip 3 5 Active Blood Glucose Monitoring Suppl (BLOOD GLUCOSE MONITOR SYSTEM) w/Device KitIndications:Unc ontrolled type 2 diabetes mellitus with hyperglycemia ([facility] HHS/HCC) Test once daily 1 kit 5 Active Insulin Glargine-yfgn 100 UNIT/ML Solution Pen-injectorIndica tions:Uncontrolled type 2 diabetes mellitus with hyperglycemia ([facility] HHS/HCC) Inject 28 Units into the skin daily. 30 mL 3 5 Active canagliflozin (INVOKANA) 300 MG tabletIndications: Uncontrolled type 2 diabetes mellitus with hyperglycemia ([facility] HHS/HCC) Take 1 tablet (300 mg total) by mouth every morning before breakfast. 90 tablet 3 5 Active Insulin Pen Needle (BD PEN NEEDLE SANTO U/F) 32G X 4 MM MiscIndications:Un controlled type 2 diabetes mellitus with hyperglycemia ([facility] HHS/HCC) Takes 1 injection daily 100 each 3 5 Active metFORMIN ER (GLUCOPHAGE-XR) 500 MG 24 hr tabletIndications: Uncontrolled type 2 diabetes mellitus with hyperglycemia ([facility] HHS/HCC) Take 2 tablets (1,000 mg total) by mouth 2 (two) times daily. 360 tablet 3 5 Active semaglutide (OZEMPIC, 0.25 OR 0.5 MG/DOSE,) 2 MG/3ML injection (PEN)Indications:D iabetes Mellitus Inject 0.25 mg into the skin every 7 days. Indications: Diabetes 3 mL 3 5 Active Active Problems Problem Noted Date Diagnosed Date Microalbuminuria 04/13/2020 Essential hypertension 04/13/2018 Mixed hyperlipidemia 04/13/2018 Diabetic polyneuropathy asso ciated with type 2 diabetes mellitus ([facility] HHS/HCC) 04/13/2018 Uncontrolled type 2 diabetes mellitus with hyperglycemia ([facility]) 2014 Encounters Date Type Department Care Team Description 08/27/2024 Scan [facility] HEALTH INFO SRVCS Scanned, Doc Med Group 08/23/2024 10:20 AM CDT Office Visit [facility] Diabetes and Endocrinology - [address] [phone] Rhona Tilley MD Type 2 Diabetes 08/23/2024 Travel from Last 3 Months Social History Tobacco Use Types Packs/Day Years Used Date Smoking Tobacco: Every Day Cigarettes Smokeless Tobacco: Former Tobacco Cessation:Ready to Q uit: No; Counseling Given: Yes Comments:States ready to quit but cant kick it PHQ-2 Answer Date Recorded Patient Health Questionnaire-2 Score 0 08/06/2023 Sex and Gender Information Value Date Recorded Sex Assigned at Male 05/12/2024 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 Legal Sex Male 9:29 PM CDT Gender Identity Not on file Sexual Orientation Not on file Last Filed Vital Signs Vital Sign Reading Time Taken Comments Blood Pressure 140/78 08/23/2024 11:41 AM CDT Pulse 62 08/23/2024 10:59 AM CDT Temperature 36.7 C (98 F) 08/06/2023 10:01 AM CDT Respiratory Rate 18 04/13/2019 10:4 2 AM DYE HOUSE VAT WORKER Oxygen Saturation 98% 08/23/2024 10: 59 AM CDT Inhaled Oxygen Concentration - - Weight 113.8 kg (250 lb 12.8 oz) 2024 10:59 AM CDT Height 180.3 cm (5' 11) 08/23/2024 10: 59 AM CDT Body Mass Index 34.98 08/23/2024 10:59 AM CDT Plan of Treatment Upcoming Encounters Date Type Department Care Team (Late st Contact Info) Description 11/01/2024 11:40 AM CDT Office Visit [facility] Diabetes and Endocrinology - [address] [phone] Rhona Tilley MD [address] [place] [address] Health Maintenance Due Date Last Done Comments Colorectal Cancer Screening Colonoscopy (10 Years) 1960 Kidney Health Evaluation 1960 Lipid Panel 1960 Annual Physical 12/14/1962 Hepatitis C 12/14/1977 Pneumococcal Vaccine: 50+ Years (1 of 2 - PCV) 12/14/1978 Zoster Vaccines (1 of 2) 12/14/2009 RSV Immunization or 60+ Years (1 - Risk 60-74 years 1-dose series) 2019 Diabetes: Retinopathy Eye Exam 11/13/2023 11/12/2021 COVID-19 Vaccine ( season) 2023 PHQ-2 (Physician [place]) 03/23/2024 08/06/2023 DTaP, Tdap and Td Vaccines (2 - Td or Tdap) 09/17/2024 09/17/2014 Hemoglobin A1C 11/23/2024 08/23/2024, 04/24, 08/06/2023, Additional history exists Meningococcal B Vaccine Aged Out No l onger eligible based on patient's age to complete this topic Meningococcal Vaccine Aged Out No shweta cas eligible based on patient's age to complete this topic RSV Immunizations Under 20 Months Aged Out No longer eligible based on patient's age to complete this topic Procedures Procedure Name Priority Date/Time Associated Diagnosis Comments COLLECT.CAPILLARY (FNGR,HEEL,EAR) Routine 08/23/2024 11:07 AM CDT Uncontrolled type 2 diabetes mellitus with hyperglycemia ([facility]) GLUCOSE BLOOD, MONITOR DEVICE Routine 08/23/2024 Uncontrolled type 2 diabetes mellitus with hyperglycemia ([facility]) HEMOGLOBIN, GLYCOSYLATED Routine 08/23/2024 Uncontrolled type 2 diabetes mellitus with hyperglycemia ([facility]) DIABETIC RETINOPATHY EXAM (NEGATIVE)(SCAN ORDER) Routine 11/12/2021 from Last 3 Months or Most Recently Relevant to Health Maintenance Results * A1C (BACK OFFICE) (08/23/2024) HGB A1C 9.3 % [address] [place] 08/23/2024 us Rhona Tilley MD LABORATORY Final Re sult [address] [place] [address], * (ABNORMAL) GLUCOSE, BLOOD FINGERSTICK (08/23/2024) Pathologist [facility] GLUCOSE WHOLE BLOOD 334(A) 70 - 100 mg/dL [address], [place] 08/23/2024 us Rhona Tilley MD LABORATORY Final Re sult [facility], [place] [address] [place] [address], * DIABETIC RETINOPATHY EXAM (NEGATIVE)(SCAN) (11/12/2021) us Doc Med Group Scanned SCANNING Final Resu lt HS ONBASE from Last 3 Months or Most Recently Relevant to Health Maintenance Insurance Care Teams Numerical Control Programmer Relationship Specialty Start Date End Date Sai Colbert MD [address] [place] [address] PCP - General FAMILY PRACTICE 04/13/18
--- OUTSIDE RECORDS SUMMARY | 2024-10-13 11:26 | XMS_ITS | Encounter Summary ---
Author Organization [facility] Address [address] [place] [address] Care Team Providers Care Staff Research Scientist Name Role Phone Sai Colbert MD Primary Care Provider [phone] Encounter Details Date Type Department Care Team (Late Contact Info) Description 05/05/2024 MyChart Message Enc [facility] Diabetes and Endocrinology [address] [phone] Rhona Tilley MD [address] [place], [place] [address] Social History Tobacco Use Types Packs/Day Years Used Date Smoking Tobacco: Every Day Cigarettes Smokeless Tobacco: Former Comments:States ready to polo t but cant kick it PHQ-2 Answer Date Recorded Patient Health Questionnaire-2 Score 0 08/06/2023 Sex and Gender Information Value Date Recorded Sex Assigned at Male 05/12/2024 11:04 AM DATABASE TESTER Legal Sex Male 9:29 PM CDT Gender Identity Not on file Sexual Orientation Not on file documented as of this encounter Plan of Treatment Upcoming Encounters Date Type Department Care Team (Late Contact Info) Description 11/01/2024 11:40 AM CDT Office Visit [facility] Diabetes and Endocrinology [address] [phone] Rhona Tilley MD [address] [place], [place] [phone] documented as of this encounter Visit Diagnoses Not on filedocumented in this encounter Additional Health Concerns Assessment Noted Time PHQ-9 Depression Total Score: 0 10/13/19 21 11:22 AM CDT documented as of this encounter Care Teams Staff Research Scientist Relationship Specialty Start Date End Date Sai Colbert MD [address] [place] [address] PCP - General FAMILY PRACTICE 04/13/18 documented as of this encounter
--- OUTSIDE RECORDS SUMMARY | 2024-10-13 11:26 | XMS_ITS | Clinical Summary ---
Author Organization [facility] Address [address] [place] [address] Care Team Providers Care Overcoil Stepper Name Role Phone Sai Colbert MD Primary Care Provider Source Comments [facility],non-owned Affiliates and Associated Physician Practices is amultiple site organization consisting of ambulatory clinics and hospital sitesin [place], [place], [place] and [place]. This disclosure is being madepursuant to the Care Everywhere program and may not contain all information available regarding this patient. Last updated 17.[facility] Allergies No known active allergies Medications * [...] season) 2023 DEPRESSION SCREENING 03/23/2024 INFLUENZA VACCINE (#1) 2024 Respiratory Syncytial Virus (RSV) Vaccine Pt: [...] this topic Medical Devices Implanted Type Area Straw Hat Brusher Device Identifier Shelf Expiration Date Model / Serial / Lot 5.5mm [employer] Implanted:Qty: 2 on 09/10/2015 by Umer Lentz MD at [facility] Left: Shoulder [employer] 05/20/2018 [id number] / / [id number] Procedures Procedure Name Priority Date/Time Associated Diagnosis Comments GLUCOSE - POINT OF CARE Routine 09/10/2015 6:14 AM CDT from Last 3 Months or Most Recently Relevant to Health Maintenance Results * (ABNORMAL) GLUCOSE - POINT OF CARE (09/10/2015 6:14 AM CDT) Glucose WB/POC 152(H) 70 - 106 mg/dL 09/10/2015 6:16 AM CDT [facility] Blood BLOOD SPECIMEN / Unknown 09/10/2015 6:14 AM CDT 09/10/2015 6:16 AM CDT Umer Lentz MD LAB - POINT OF CARE ORDERABLES F inal Result Performing Organization Address City/State/[facility] Co de Phone Number [facility] [address] [place], [place] [phone] from Last 3 Months or Most Recently Relevant to Health Maintenance Insurance [facility] MEDICARE MEDICAID - OUT OF STATE Care Teams Overcoil Stepper Relationship Specialty Start Date End Date Sai Colbert MD [address] [facility] [address] [place] [address] PCP - General Family Medicine 06/29/15
== END 2024-10-13 11:21 | disposition home or self-care (01) ==
PROVIDERS: PCP Family Medicine; Visit Provider Nurse Practitioner Family
DX: R19.7 Diarrhea, unspecified (principal); R15.9 Full incontinence of feces
CPT/HCPCS: 74018